=== PATIENT | male | born 1980 | race Caucasian/White ===

== ENCOUNTER → 2016-12-16 | Day surgery (SDC) | payer OTHER ==
[~2016-12-16] MED LIST: Acetaminophen/HYDROcodone 325-5 MG Tab PO PRN; Bupivacaine 0.25% 10 ML SDV INJECT ONE; Bupivacaine 0.25% 10 ML SDV ONE; Dexamethasone 4 MG/ML SDV IV ONE; Glycopyrrolate 0.2 MG/ML SDV IVPUSH ONE; Ketorolac 30 MG/ML SDV IVPUSH ONE; Lactated Ringers 1,000 ML IV SCH; Lidocaine 2% 20 ML MDV INJECT ONE; Lidocaine 2% 20 ML MDV ONE; Midazolam 1 MG/ML 2 ML SDV IV ONE; Morphine 4 MG/ML Syringe IVPUSH PRN; Ondansetron 4 MG/2 ML SDV IV ONE; Ondansetron 4 MG/2 ML SDV IVPUSH PRN; Propofol 200 MG/20 ML SDV IV ONE; ceFAZolin 1 GM Vial IVPUSH ONE; fentaNYL 100 MCG/2 ML SDV IV ONE
--- NOTE | 2016-12-17 07:22 | OR ---
DATE OF OPERATION: 12/16/2016 PREOPERATIVE DIAGNOSIS: UMBILICAL HERNIA. POSTOPERATIVE DIAGNOSIS: UMBILICAL HERNIA. SURGEON: Manuel Chavez MD PROCEDURE: REPAIR OF UMBILICAL HERNIA. ANESTHESIA: General. DESCRIPTION OF PROCEDURE: After the patient was anesthetized satisfactorily, patient's abdominal wall was prepped with iodoform. Patient was given sterile drapes. A small skin incision was made around the patient's umbilicus. Dissection was carried out. Patient's hernia sac was exposed. Facial defect all around was exposed. Hernia sac was reduced back into the peritoneal cavity. Then deep fascia was closed with 0 Ethibond [id number] sutures. Then subcutaneous tissue was closed with 3-0 Vicryl interrupted sutures. Skin was closed with 4-0 Vicryl subcuticular sutures. The patient was given sterile dressing. He tolerated the procedure well and left the operating room in satisfactory condition. JACK/KATEY /[id number]
== END ==
LOC: CC.SDS 09:11
PROVIDERS: ATTEND Surgery
DX: K42.9 Umbilical hernia without obstruction or gangrene (principal); Z98.890 Other specified postprocedural states
CPT/HCPCS: 49585; A9270; J0690; J1100; J1885; J2250; J2405; J2704; J3010; J7120

== ENCOUNTER → 2020-04-21 | Day surgery (SDC) | payer BC, OTHER ==
[~2020-04-21] MED LIST changes: -Acetaminophen/HYDROcodone 325-5 MG Tab PO PRN; -Bupivacaine 0.25% 10 ML SDV INJECT ONE; -Bupivacaine 0.25% 10 ML SDV ONE; -Dexamethasone 4 MG/ML SDV IV ONE; -Glycopyrrolate 0.2 MG/ML SDV IVPUSH ONE; +Ketamine 200 MG/20 ML MDV ONE; -Ketorolac 30 MG/ML SDV IVPUSH ONE; -Lidocaine 2% 20 ML MDV INJECT ONE; -Lidocaine 2% 20 ML MDV ONE; -Midazolam 1 MG/ML 2 ML SDV IV ONE; +Midazolam 1 MG/ML 2 ML SDV ONE; -Morphine 4 MG/ML Syringe IVPUSH PRN; -Ondansetron 4 MG/2 ML SDV IV ONE; -Ondansetron 4 MG/2 ML SDV IVPUSH PRN; -Propofol 200 MG/20 ML SDV IV ONE; +Propofol 200 MG/20 ML SDV ONE; -ceFAZolin 1 GM Vial IVPUSH ONE; -fentaNYL 100 MCG/2 ML SDV IV ONE; +fentaNYL 100 MCG/2 ML SDV ONE
--- NOTE | 2020-04-21 15:02 | OR ---
DATE OF OPERATION: 04/21/2020 PREOPERATIVE DIAGNOSIS: HEMATOCHEZIA. POSTOPERATIVE DIAGNOSIS: HEMATOCHEZIA. SURGEON: Curry Hallman MD PROCEDURE: DIAGNOSTIC COLONOSCOPY. ANESTHESIA: MAC. COMPLICATIONS: None. SPECIMEN: None. FINDINGS: 1. Full-length colonoscopy. 2. Prominent and friable internal hemorrhoids. RECOMMENDATIONS: We will place the patient on [facility] for the next week and he will have close followup with Dr. Hidalgo. If symptoms do not resolve, he should seek surgical consult. INDICATIONS: The patient has been having some ongoing hematochezia with any bowel movement. Dr. Hidalgo sent him for diagnostic scope. DESCRIPTION OF PROCEDURE: The patient was prepped and draped, placed in the left lateral decubitus position. A lubricated Olympus colonoscope was inserted and easily advanced to the cecum. Direct visualization of the ileocecal valve and appendiceal orifice was accomplished. The bowel prep was adequate. Upon withdrawal of the scope throughout the entire length of the colon, I could find no signs of any polyps, masses, ulceration, or bleeding sites. No vascular abnormalities or signs of colitis. There were no diverticula in the rectal vault. Everything appeared benign. Retroflexion confirmed a lot of perianal hemorrhoid disease. A few of these areas were very friable and with manipulation bled easily and I suspect is the source of this gentleman's pain. I do not see any signs of fissures present. Air was suctioned. The scope was removed without complication. EUSEBIO/MIRIANL /[id number]
== END ==
LOC: CC.SDS 12:16
PROVIDERS: ATTEND Family Medicine
DX: K92.1 Melena (principal); K64.8 Other hemorrhoids; E66.9 Obesity, unspecified; Z98.890 Other specified postprocedural states; Z01.812 Encounter for preprocedural laboratory examination; Z20.822 Contact with and (suspected) exposure to COVID-19; Z68.33 Body mass index [BMI] 33.0-33.9, adult
CPT/HCPCS: 00811; J2250; J2704; J3010; J7120